=== PATIENT | female | born 1995 | race Caucasian/White ===

== ENCOUNTER 2018-08-01 17:11 | Emergency (ER) | payer OTHER, BC ==
[~2018-08-01] VITALS: Ht 162.6 cm; Wt 57.1 kg
[2018-08-01] MEDS ORDERED: ONDANSETRON PF 4 MG/2 ML VIAL. IV ONE (17:30)
[2018-08-01] MEDS ORDERED: IV NORMAL SALINE 1,000ML 1,000 ML IV SCH (17:30)
--- NOTE | 2018-08-01 17:39 | PHYS DOC ---
Past History Past Medical History: No Pertinent History (KORY JACINTO MD) Smoking: Non-smoker Alcohol Use: Occasionally Drug Use: None (KORY JACINTO MD) Adult General Chief Complaint Chief Complaint: VOMITING IN HPI HPI Patient is a 22 year old female at 7 weeks of gestation with LMP of June 17 who presents with complaining of nausea and vomiting. Patient states she had 4 or 5 episodes of vomiting every day after eating for the last 1 week and complaining of generalized weakness and almost passing out each time she is getting up. Patient denies vaginal bleeding, urinary symptoms, abdominal pain, fever and chills, cough and congestion. Patient had positive home test and and has appointment with [facility] in a few weeks and did not have any OB ultrasound or office test. (KORY JACINTO MD) Review of Systems Review of Systems Constitutional: Denies fever or chills [] Eyes: Denies change in visual acuity, redness, or eye pain [] HENT: Denies nasal congestion or sore throat [] Respiratory: Denies cough or shortness of breath [] Cardiovascular: No additional information not addressed in HPI [] GI: Denies abdominal pain, bloody stools or diarrhea, reports nausea and vomiting [] : Denies dysuria or hematuria [] Musculoskeletal: Denies back pain or joint pain [] Integument: Denies rash or skin lesions [] Neurologic: Denies headache, focal weakness or sensory changes [] Endocrine: Denies polyuria or polydipsia [] All other systems were reviewed and found to be within normal limits, except as documented in this note. (KORY JACINTO MD) Current Medications Current Medications Current Medications Medications (Trade) Dose Ordered Sig/Ellie Start Time Stop Time Status Last Admin Dose Admin Ondansetron HCl (Zofran) 4 mg 1X ONCE 08/01/18 17:30 08/01/18 17:31 UNV Sodium Chloride 1,000 ml @ 1,000 mls/hr Q1H 08/01/18 17:28 08/01/18 18:27 UNV (KORY JACINTO MD) Allergies Allergies Allergies Coded Allergies Type Severity Reaction Last Updated Verified Penicillins Allergy Severe hives, seizures 08/01/18 Yes (KORY JACINTO MD) Physical Exam Physical Exam Constitutional: Well developed, well nourished, mild distress, non-toxic appearance. [] HENT: Normocephalic, atraumatic, oropharynx dry, no oral exudates, nose normal. [] Eyes: PERRLA, EOMI, conjunctiva normal, no discharge. [] Neck: Normal range of motion, no tenderness, supple, no stridor. [] Cardiovascular:Heart rate regular rhythm, no murmur [] Lungs & Thorax: Bilateral breath sounds clear to auscultation [] Abdomen: Bowel sounds normal, soft, no tenderness, no masses, no pulsatile masses. [] Skin: Warm, dry, no erythema, no rash. [] Back: No tenderness, no CVA tenderness. [] Extremities: No tenderness, no cyanosis, no clubbing, ROM intact, no edema. [] Neurologic: Alert and oriented X 3, normal motor function, normal sensory function, no focal deficits noted. [] Psychologic: Affect normal, judgement normal, mood normal. [] (KORY JACINTO MD) EKG EKG [] (KORY JACINTO MD) Radiology/Procedures Radiology/Procedures [] (KORY JACINTO MD) Impressions: PROCEDURE: OB <14 WKS W/TV OB ultrasound less than 14 weeks HISTORY: Nausea and vomiting 7 weeks Sonographic examination appearance was performed by transabdominal and endovaginal technique. Multiple static images were obtained. Ultrasound less than 14 weeks transabdominal: There is a gestational sac in the uterus. Transvaginal ultrasound : The maternal cervix appears normal measures 3.4 centers in length. There is a single live intrauterine . The heartbeat is confirmed at 137 beats for minute. The crown-rump length of 7.7 mm corresponds with a 6 week 5 day gestational age and estimated date of confinement of 03/22/2019. The LMP of 06/17/2018 corresponds with 7 week 1 day gestational age and estimated confinement 03/19/2019. The right ovary appears normal normal blood flow. The left ovary has normal blood flow and contains a 10 mm hemorrhagic corpus luteal cyst. IMPRESSION: 1. Single live intrauterine at 6 weeks 3 days gestational age by LMP has appropriate size by ultrasound. 2. No abnormality identified. A short-term follow-up ultrasound could be performed if clinically indicated otherwise a structural survey would be performed at 18-21 weeks gestational age. Electronically signed by: Jeremy Duggan III, MD (08/01/2018 6:25 PM) [facility] (NATHAN RASCON Jr., DO) Course & Med Decision Making Course & Med Decision Making Pertinent Labs and Imaging studies are pending. Evaluation of patient in ER showed 22-year-old female patient presented to emergency room for nausea and vomiting during . Labs and OB ultrasound is pending. Patient care transferred to Dr. Rascon at 1800. (KORY JACINTO MD) Dragon Disclaimer Dragon Disclaimer This electronic medical record was generated, in whole or in part, using a voice recognition dictation system. (KORY JACINTO MD) Departure Departure: Impression: Primary Impression: Hyperemesis gravidarum Disposition: 01 HOME, SELF-CARE Condition: STABLE Patient Instructions: Nausea and Vomiting, Scripts Ondansetron Hcl (ZOFRAN) 4 Mg Tablet 1 TAB PO Q8HRS PRN for NAUSEA, #15 TAB 1 Refill Prov: NATHAN RASCON Jr., DO 08/01/18 KORY JACINTO MD Aug 01, 2018 17:39 NATHAN RASCON Jr., DO Aug 01, 2018 18:49
[2018-08-01 18:05] LABS: BILIRUBIN,URINE NEG (NEG); CLARITY,URINE HAZY; COLOR,URINE YELLOW; GLUCOSE,URINE NEG (NEG)
[2018-08-01 18:06] LABS: BACTERIA,URINE MANY /HPF (0-FEW); NITRITE,URINE NEG (NEG); RBC,URINE 0 /HPF (0-2); SQUAMOUS EPITHELIAL CELL,UR MANY /LPF; UROBILINOGEN,URINE 0.2 mg/dL (0.2 mg/dL)
--- NOTE | 2018-08-01 18:29 | RAD ---
OB ultrasound less than 14 weeks HISTORY: Nausea and vomiting 7 weeks Sonographic examination appearance was performed by transabdominal and endovaginal technique. Multiple static images were obtained. Ultrasound less than 14 weeks transabdominal: There is a gestational sac in the uterus. Transvaginal ultrasound : The maternal cervix appears normal measures 3.4 centers in length. There is a single live intrauterine . The heartbeat is confirmed at 137 beats for minute. The crown-rump length of 7.7 mm corresponds with a 6 week 5 day gestational age and estimated date of confinement of 03/22/2019. The LMP of 06/17/2018 corresponds with 7 week 1 day gestational age and estimated confinement 03/19/2019. The right ovary appears normal normal blood flow. The left ovary has normal blood flow and contains a 10 mm hemorrhagic corpus luteal cyst. IMPRESSION: 1. Single live intrauterine at 6 weeks 3 days gestational age by LMP has appropriate size by ultrasound. 2. No abnormality identified. A short-term follow-up ultrasound could be performed if clinically indicated otherwise a structural survey would be performed at 18-21 weeks gestational age. Electronically signed by: Jeremy Duggan III, MD (08/01/2018 6:25 PM) [facility]
[2018-08-01 18:37] LABS: BASO # 0.1 x10^3/uL (0.0-0.2); BASO % 1 % (0-3); EOS # 0.1 x10^3/uL (0.0-0.7); EOS % 1 % (0-3); HEMATOCRIT 48.5 % (36.0-47.0); HEMOGLOBIN 16.5 g/dL (12.0-15.5); LYMPH # 2.2 x10^3/uL (1.0-4.8); LYMPH % 22 % (24-48); MEAN CORPUSCULAR HEMOGLOBIN 32 pg (25-35); MEAN CORPUSCULAR HGB CONC 34 g/dL (31-37); MEAN CORPUSCULAR VOLUME 93 fL (79-100); MONO # 0.7 x10^3/uL (0.0-1.1); MONO % 7 % (0-9); NEUT % 70 % (31-73); PLATELET COUNT 348 x10^3/uL (140-400); RED CELL DISTRIBUTION WIDTH 12.7 % (11.5-14.5); WHITE BLOOD COUNT 9.9 x10^3/uL (4.0-11.0)
[2018-08-01 18:48] LABS: ALBUMIN 4.7 g/dL (3.4-5.0); ALBUMIN/GLOBULIN RATIO 1.1 (1.0-1.7); CALCIUM 9.8 mg/dL (8.5-10.1); CREATININE 0.6 mg/dL (0.6-1.0); GFR 126.2; POTASSIUM 3.6 mmol/L (3.5-5.1); TOTAL BILIRUBIN 0.3 mg/dL (0.2-1.0); TOTAL PROTEIN 8.9 g/dL (6.4-8.2)
[2018-08-01] MEDS ORDERED: ONDA4TAB7 PO (19:53)
[2018-08-01 19:57] VITALS: BP 114/78
== END 2018-08-01 20:08 | disposition home or self-care (01) ==
LOC: ER 17:11
DX: O21.0 Mild hyperemesis gravidarum (principal); R53.1 Weakness; Z3A.01 Less than 8 weeks gestation of pregnancy; Z88.0 Allergy status to penicillin
CPT/HCPCS: 36415; 76801; 76817; 80053; 81001; 84702; 85025; 87086; 96361; 96374; 99284; J2405; J7030